=== PATIENT | female | born 1990 | race Caucasian/White ===

== ENCOUNTER 2022-04-22 15:07 | Emergency (ER) | payer OTHER, SELFPAY ==
--- NOTE | ~2022-04-22 | XR_ITS ---
EXAM: XR foot RT min 3V DATE: 04/22/2022 16:44 HISTORY: recent surgery possible re-injury, Rt foot prox 5th MT . COMPARISON: None available. FINDINGS: Proximal fifth metatarsal fixation screw and plate hardware without hardware fracture or pe rihardware lucency. Normal mineralization. No fracture or dislocation. No lytic or blastic lesion. Dena int spaces are maintained. No erosion or periosteal change. Soft tissues within normal limits. IMPRESSION: No acute osseous finding in the right foot. No radiographic evidence of hardware-related complication. Reviewed, dictated and finalized at location K. IMPRESSION: No acute osseous finding in the right foot. No radiographic evidenc e of hardware-related complication.
[2022-04-22 15:13] VITALS: BP 129/84; PULSE 89; RESP 16; TEMP 36.9; O2SAT 100
[2022-04-22 16:17] LABS: Basophils Absolute Auto 0.1 K/mm3 (0.0-0.1); Basophils Percent Auto 0.3 % (0.2-1.2); Eosinophils Absolute Auto 0.1 K/mm3 (0-0.3); Eosinophils Percent Auto 0.4 % (0-4.4); Hematocrit 41.6 % (37.0-47.0); Hemoglobin 13.6 g/dL (12.0-15.0); Immature Granulocyte Absolute 0.04 K/mm3 (0.00-0.031); Immature Granulocyte Percent A 0.3 % (0-0.5); Lymphocytes Absolute Auto 3.31 K/mm3 (0.9-3.2); Lymphocytes Percent Auto 21.6 % (18.3-44.2); Mean Corpuscular HGB Conc 32.7 g/dl (32-36); Mean Corpuscular Hemoglobin 28.7 pg (26-34); Mean Corpuscular Volume 87.8 fl (80-100); Mean Platelet Volume 10.1 fl (7.4-10.4); Monocytes Absolute Auto 0.8 K/mm3 (0.1-0.6); Monocytes Percent Auto 5.1 % (2.6-8.5); Neutrophils Absolute Auto 11.1 K/mm3 (1.3-6.7); Neutrophils Percent Auto 72.3 % (45.5-73.1); Platelet Count Result 399 k/mm3 (150-375); Red Blood Count 4.74 M/mm3 (4.2-5.4); Red Cell Distribution Width 13.6 % (11.5-14.5); White Blood Count 15.3 K/mm3 (4.5-10.0)
[2022-04-22 16:34] LABS: Alanine Aminotransferase 41 U/L (6-35); Albumin Level 4.7 g/dL (3.5-5.1); Alkaline Phosphatase 80 U/L (38-126); Anion Gap 12 mmol/L (8-16); Aspartate Amino Transferase 28 U/L (14-36); Bilirubin,Total 0.5 mg/dL (0.2-1.3); Blood Urea Nitrogen 12 mg/dL (7-17); Carbon Dioxide 25 mmol/L (22-30); Chloride 103 mmol/L (98-107); Estimated CRCL calculation 70 ml/min; Estimated Glomerular Filt Rate > 60; Glucose 111 mg/dL (65-110); Lipase 129 U/L (23-300); Sodium 140 mmol/L (137-145)
[2022-04-22] MEDS: MORPHINE SULFATE (*CRX) 4 MG/ML INJ IV PUSH (16:49)
[2022-04-22] MEDS: SODIUM CHLORIDE 0.9% IV 1,000 ML 999 ML IV CONT (16:49)
[2022-04-22] MEDS: METOCLOPRAMIDE HCL INJ 10 MG/2 ML VIAL IV PUSH (16:53)
[2022-04-22] MEDS: diphenhydrAMINE HCl INJ 50 MG/ML VIAL 25 MG IV PUSH (16:59)
[2022-04-22 17:04] VITALS: BP 125/80; PULSE 73; RESP 18; O2SAT 100
--- NOTE | 2022-04-22 17:14 | ED.NAVMDI ---
HPI - Nausea/Vomiting/Diarrhea General Chief complaint: Nausea/Vomiting/Diarrhea Stated complaint: vomiting, foot surgery yesterday Time Seen by Provider: 04/22/22 16:03 History of Present Illness HPI Narrative: 31-year-old female with recent foot surgery presents after throwing up all morning, she does have a history of ulcerative colitis and fatty liver disease but denies any abdominal pain. She is unable to keep down her pain medications. Denies any diarrhea. Related Data Allergies Allergy/AdvReac Type Severity Reaction Status Date / Time gold Au 198 Allergy had Verified 11/10/21 11:32 allergy test Review of Systems Review of Systems: CONST: No fever. HEENT: No sore throat C/V: No chest pain RESP: No cough GI: Reports nausea, vomiting : No dysuria. M/S: No joint pain. SKIN: No rash. NEURO: [No headache or focal numbness or weakness] PSYCH: [No depression] PMFSH Surgical History Surgical History H/O nasal septoplasty Family History Family History Mother Cervical cancer Social History Social History Smoking packs per day: 0 Smoking cigarettes per day: 0.0 Smoking status: Never smoker Alcohol intake: never Other substance usage details: cbd Additional occupation/education comments: management Gender identity (if verbalized by the patient): Female Sexual Orientation (if Verbalized by the Patient): Straight or Heterosexual Spiritual care concerns: No Exam Narrative: EXAMINATION OF ORGAN SYSTEMS/BODY AREAS: Constitutional: Vital signs per nursing GENERAL: Appears to be in pain HEAD: Normal with no signs of head trauma. EYES: EOMI, conjunctiva normal ENT: Hearing grossly intact LUNGS: Nonlabored breathing. HEART: [Regular rate and rhythm] ABD: [Soft], [nontender to palpation] EXT: Right ankle in cast SKIN: [No rashes or lesions.] NEURO: [Alert and oriented x 3. No gross focal sensory or strength deficits.] PSYCH: Normal affect Course Vital Signs Vital signs: Vital Signs Temperature 98.4 F 04/22/22 15:13 Pulse Rate 89 04/22/22 15:13 Respiratory Rate 16 04/22/22 15:13 Blood Pressure 129/84 04/22/22 15:13 Pulse Oximetry 100 04/22/22 15:13 Temperature 98.4 F 04/22/22 15:13 Pulse Rate 71 04/22/22 17:38 Respiratory Rate 18 04/22/22 17:04 Blood Pressure 123/76 04/22/22 17:38 Pulse Oximetry 100 04/22/22 17:04 MDM - Nausea/Vomiting/Diarrhea MDM Narrative Medical decision making narrative: electronic medical record was reviewed. Patient presented to the ED with complaint of vomiting. Vitals [were within acceptable limits]. Physical exam revealed uncomfortable appearing patient and soft, nontender abdomen. Based on the patient's history and physical exam, my differential includes but is not limited to gastritis, gastroenteritis, doubt cholecystitis, pancreatitis, appendicitis, or ulcerative colitis flareup without any abdominal pain or tenderness. [IV access was established by nursing staff. Patient was given Reglan, morphine, IV fluids]. CBC, BMP, lipase, LFTs, bilirubin and alk phos were obtained. Labs were pertinent for leukocytosis, which could possibly be from the surgery or vomiting. Shared decision making not to obtain CT at this time without any abdominal pain. On reevaluation, the patient states that they are feeling much better. There were no witnessed episodes of vomiting in the emergency department. They are not complaining of any new abdominal pain. Repeat examination did not show any significant guarding or rebound. No new tenderness. At this time I do not feel there is any further emergent treatment to be provided. The patient was given strict return precautions, if they are to develop any abdominal pain, vomiting, or blood in the vomit they are to return to the emergency departmen
[2022-04-22 17:38] VITALS: BP 115/69; BP 123/76; BP 123/82; PULSE 64; PULSE 71
[2022-04-22 17:44] LABS: Appearance Urine Clear (Clear); Bilirubin Urine 1+ (Negative); Blood Urine Negative (Negative); Color Urine Yellow (Yellow); Glucose Urine UA Negative (Negative); Ketones Urine 2+ mg/dL (Negative); Leukocyte Esterase Ur Trace LEU/UL (Negative); Nitrate Urine Negative (Negative); Protein Urine Trace mg/dL (Negative); Specific Grav Ur >= 1.030 (1.001-1.035); Urobilinogen Urine 0.2 mg/dL (<2.0)
[2022-04-22 18:18] VITALS: BP 103/70; PULSE 61; RESP 18; O2SAT 99
[2022-04-22 18:24] LABS: Add Urine Microscopic? YES; Mucus Urine Rare /lpf; Squamous Epithelial Cell Urine Many /hpf (Few)
== END 2022-04-22 18:20 | disposition home or self-care (01) ==
PROVIDERS: Emergency Medicine; Emergency Provider Emergency Medicine
DX: R11.10 Vomiting, unspecified (principal); Z98.890 Other specified postprocedural states; K51.90 Ulcerative colitis, unspecified, without complications; K76.0 Fatty (change of) liver, not elsewhere classified
CPT/HCPCS: 36415; 73630; 80053; 81001; 81025; 83690; 85025; 96361; 96374; 96375; 99284; J1200; J2270; J2765; J7030

== ENCOUNTER 2022-04-26 22:39 | Emergency (ER) | payer OTHER, SELFPAY ==
[2022-04-26] VITALS (10 sets, daily range): BP systolic 137–153; BP diastolic 95–97; PULSE 68–75; RESP 12–21; O2SAT 98–100
--- NOTE | ~2022-04-26 | CT_ITS ---
EXAMINATION: CT brain wo con DATE: 04/26/2022 23:44 INDICATION: Headache. TECHNIQUE: Computed tomography (CT) of the head was performed without intravenous contrast. The mA wa s adjusted according to patient size. Iterative reconstruction technique was employed. The dose-lengt h product was 605.33 mGy-cm. COMPARISON: Head CT 01/10/2019 FINDINGS: There is no intracranial hemorrhage, acute infarction, or abnormal intracranial mass lesion . The ventricles are normal in size. There is mild mucosal thickening in the paranasal sinuses. The m astoid air cells are normal. The orbits are normal. IMPRESSION: 1. Normal brain. Reviewed, dictated and finalized at location A. IMPRESSION: 1. Normal brain.
--- NOTE | 2022-04-26 23:06 | ED.GENADULT ---
HPI - General Adult General Chief complaint: Unspecified Stated complaint: 1/2 head pain/ 1/2 head tingling Time Seen by Provider: 04/26/22 22:44 Source: patient Mode of arrival: ambulatory History of Present Illness HPI narrative: 31-year-old female presents today with complaints of pain to the left side of the head and tingling to the right side of the head that started around 8:00 this evening. Patient does endorse nausea but denies sensitivity to light. Patient states she has a history of tension headaches but this feels nothing like that. Patient did have surgery on her right foot on Sunday. She did see her orthopedic surgeon today who prescribed gabapentin, Eliquis, and Zofran. Patient states she took her Eliquis around 6:00 the headache started around 8 and then she took some gabapentin. Related Data Allergies Allergy/AdvReac Type Severity Reaction Status Date / Time gold Au 198 Allergy had Verified 04/26/22 23:01 allergy test Review of Systems Review of Systems: CONSTITUTIONAL: Denies fever, chills, or sweats. EYES: States she has had some floaters. Denies redness, or discharge. ENT: Denies rhinorrhea, congestion, sore throat, or otalgia. CARDIOVASCULAR: Denies chest pain, palpitations, or edema. RESPIRATORY: Denies cough or dyspnea. GASTROINTESTINAL: Denies abdominal pain, nausea, vomiting, or diarrhea. GENITOURINARY: Denies dysuria or hematuria. SKIN: Denies rash or itching. MUSCULOSKELETAL: Denies back pain, joint pain, or myalgia. NEUROLOGIC: Left-sided headache and right-sided tingling to head. PSYCHIATRIC: Denies anxiety or depression. [facility] Surgical History Surgical History H/O nasal septoplasty Family History Family History Mother Cervical cancer Social History Social History Smoking packs per day: 0 Smoking cigarettes per day: 0.0 Smoking status: Never smoker Alcohol intake: never Other substance usage details: cbd Additional occupation/education comments: management Gender identity (if verbalized by the patient): Female Sexual Orientation (if Verbalized by the Patient): Straight or Heterosexual Spiritual care concerns: No Exam Narrative: GENERAL: Well-appearing, well-nourished, and in no acute distress. HEAD: Normocephalic, atraumatic. EYES: PERRLA and EOMI. NECK: Supple. No adenopathy or masses. No carotid bruits or JVD CHEST: Clear to auscultation. No respiratory distress. No wheezes rales or rhonchi HEART: Regular rate and rhythm. No murmur heard. Normal peripheral pulses. ABDOMEN: Soft, nontender, nondistended, normal active bowel sounds. EXTREMITIES: Normal range of motion. No edema. SKIN: Warm, dry, no rash. NEURO: No focal deficits. Alert and oriented x3. PSYCH: Normal mood and affect. Course Course Emergency Course: Discussed CT results with patient. Patient is aware there are no acute findings. Patient has been given IV fluids, Benadryl, Reglan, and Toradol. Patient currently without any pain. Patient wanting to be discharged home. Will discharge patient home with plan follow-up with primary if needed. Vital Signs Vital signs: Vital Signs Pulse Rate 70 04/26/22 22:40 Respiratory Rate 15 04/26/22 22:40 Blood Pressure 153/95 H 04/26/22 22:40 Pulse Oximetry 99 04/26/22 22:40 Pulse Rate 78 04/27/22 01:06 Respiratory Rate 18 04/27/22 01:06 Blood Pressure 137/97 H 04/27/22 00:46 Pulse Oximetry 99 04/27/22 01:06 Oxygen Delivery Room Air 04/26/22 22:52 Medical Decision Making MDM Narrative Medical decision making narrative: 31-year-old female HPI as noted. Patient newly started on Eliquis today. Patient states she took her first dose of Eliquis around 6:00. Headache started around 8. Patient with some nausea and states she saw floaters. Pain
[2022-04-26] MEDS: SODIUM CHLORIDE 0.9% IV 1,000 ML 999 ML IV CONT (23:20)
[2022-04-27] VITALS (10 sets, daily range): BP systolic 137–151; BP diastolic 92–97; PULSE 66–78; RESP 12–21; O2SAT 97–100
[2022-04-27 00:28] LABS: Appearance Urine Clear (Clear); Bilirubin Urine Negative (Negative); Blood Urine Trace-lysed (Negative); Color Urine Yellow (Yellow); Glucose Urine UA Negative (Negative); Ketones Urine 1+ mg/dL (Negative); Leukocyte Esterase Ur 3+ LEU/UL (Negative); Nitrate Urine Negative (Negative); Protein Urine 1+ mg/dL (Negative); Specific Grav Ur 1.025 (1.001-1.035)
[2022-04-27 00:34] LABS: Add Urine Microscopic? YES; Mucus Urine Few /lpf; Squamous Epithelial Cell Urine Many /hpf (Few); WBC Urine >75 /hpf
[2022-04-27] MEDS: METOCLOPRAMIDE HCL INJ 10 MG/2 ML VIAL IV PUSH (00:49)
[2022-04-27] MEDS: diphenhydrAMINE HCl INJ 50 MG/ML VIAL 25 MG IV PUSH (00:49)
[2022-04-27] MEDS: KETOROLAC 30 MG/ML VIAL (*BKC) IV PUSH (00:49)
== END 2022-04-27 01:42 | disposition home or self-care (01) ==
PROVIDERS: Emergency Provider Nurse Practitioner Family
DX: R51.9 Headache, unspecified (principal); Z98.890 Other specified postprocedural states; Z79.01 Long term (current) use of anticoagulants
CPT/HCPCS: 70450; 81001; 81025; 87086; 96361; 96374; 96375; 99284; J1200; J1885; J2765; J7030

== ENCOUNTER 2023-05-31 00:09 | Day surgery (SDC) | payer OTHER, SELFPAY ==
[2023-05-23 13:58] VITALS: BMI 24.8
--- NOTE | 2023-05-23 14:25 | PC.NURSE ---
Report to the Outpatient Waiting Room, entrance under the green pavilion located off [facility], at time _0600 on date [phone] . Planned Procedure Time: _0730 . Time changes happen often and if your time is changed the preop area will call you the afternoon before. - You and your visitor will be asked to self-screen and do not enter if you have any COVID symptoms. - A mask is optional within the hospital at this time. Patients may have clear liquids (water, carbonated beverages, clear teas, apple juice) until 3 hours prior to surgery with a maximum of 20 ounces. - No food from midnight until time of surgery Take the following medications with a SIP of water the morning of surgery: All scheduled daily except prilosec the morning of surgery. DO NOT STOP ANY OF YOUR OTHER PRESCRIPTION MEDICATIONS PRIOR TO SURGERY ?EXCEPT THE FOLLOWING Medications to discontinue per physician n/a Date to take last dose n/a Please no make-up, nail divehi, hairspray, perfume, deodorant, or body powder the day of surgery. No jewelry (including any body piercings) or valuables the day of surgery, leave them at home. Please take a shower or bath the night before, or the morning of, surgery with an antibacterial soap. Wear comfortable, loose fitting clothing. Children are encouraged to wear pajamas. - Jewelry must be removed prior to entering the operating room. Rings and piercings that are not removed may be cut off. - The hospital will not accept responsibility for valuables. - Please leave all valuables, including medications, at home the day of surgery. If you are going home after surgery, a licensed local company refrigerated truck driver must drive you home. - NO public transportation without another adult if you receive anesthesia. - We recommend that an adult stay with you for 24 hours following discharge. - We also recommend that you do not drive, make important decision, drink alcoholic beverages, or take any drugs that were not prescribed by your health care provider for at least 24 hours after your discharge time. Follow any additional instructions given to you from your surgeon. If you or anyone in your household have experienced Covid symptoms in the past week, please notify your surgeon or the nurse liaison at the phone number below for possible testing. Telephone instructions given to ___Lucy (patient) and asked if any additional questions and then verbalized understanding. Patient advised to call surgeon office or pre surgery nurse liaison [phone] if any additional questions.
[2023-05-31] VITALS (12 sets, daily range): BP systolic 107–130; BP diastolic 72–88; PULSE 61–88; RESP 10–18; TEMP 36.2–36.6; O2SAT 94–100
--- NOTE | ~2023-05-31 | XR_ITS ---
XR chest 1V portable 05/31/2023 13:57 Indication: Right mid chest pain postsurgical Procedure: AP portable chest Comparison: No prior studies for comparison. Findings: There are bilateral breast implants. There is extensive gas in the breasts bilaterally sugg esting recent breast surgery. Clinically correlate. Heart size normal. No focal air space disease, pu lmonary edema, pleural effusion or suspected pneumothorax. Impression: 1: Extensive bilateral gas within the breasts, most likely due to recent surgery. Clinically correlat e. Reviewed, dictated and finalized at location L. Impression: 1: Extensive bilateral gas within the breasts, most likely due to recent surger y. Clinically correlate.
[2023-05-31] MEDS: LACTATED RINGERS 1,000 ML 30 ML IV CONT ×2 (06:15→10:30)
[2023-05-31 06:27] LABS: Urine Cotinine NEGATIVE
--- NOTE | 2023-05-31 07:17 | WPDHPUPDATE1 ---
History and Physical Update Update Date/Time: 05/31/23 07:17 History and Physical has been reviewed, including an updated exam of the patient. There are NO changes in the patient's condition. Risks, benefits, and alternatives have been discussed and questions answered. Patient agrees to proceed with procedure.
--- NOTE | 2023-05-31 07:17 | W.PM.PROC2 ---
Procedure Note - Detailed Date of Procedure 05/31/23 Pre-op Diagnosis breast ptosis, micromastia Post-op Diagnosis Same Procedure Performed Bilateral augmentation mastopexy with suction lipectomy and Galaflex Surgeon Nakul Ivan MD Anesthesia General Findings Inverted T Mastopexy Superior pedicle Lipoaspirate: 250 cc Bilateral Izaiah Infreedom SoftTouch 520 cc Right - REF# [id number] SN [id number] Left - REF# [id number] SN [id number] Description of Procedure She is here today for the above. Previously and again today the risks, benefits, alternatives were discussed in extensive detail. I wanted her to be very realistic about the risks involved as well as expectations. We confirmed final implant style and size. We discussed aftercare and what to monitor for. Made sure answered all of her questions to her satisfaction today and consent was obtained. Marked in the preoperative holding area with their verification. The patient was taken to the operating room placed supine on the operating table. Anesthesia was provided by anesthesiology. A surgical time-out was taken. We cleansed the skin and 1% lidocaine and 0.25% Marcaine with epinephrine was used anesthetize as a field block. She was prepped and draped in a standard sterile fashion. Tegaderm nipple Hutchinson were placed. A 15 blade used to make an incision just superior to the inframammary fold leaving a cusp of de-epithelized tissue at the t junction. Dissection was continued until the chest wall as identified. I incised the pectoralis major along its inferior border and completely released the inferior border leaving the medial border intact. I created a subpectoral pocket in the appropriate dimensions based on our preoperative planning for the implant. I then copiously irrigated with saline solution and verified a strict hemostasis. Next the use a triple antibiotic and Betadine containing solution to irrigate the pocket. I washed my gloves with the triple antibiotic and Betadine solution. We washed the implant immediately upon opening it with this solution and only opened it when we needed it. I used implant funnel and no-touch technique. The implant was introduced into the pocket using the funnel. Having verified positioning of the implant this was closed using 2-0 PDS. I tailor tacked the breast into position. Placed her in a sitting position. Verified the nipple-areolar location based on preoperative planning as well as intraoperative observations and measurements in full agreement. Suction lipectomy was completed of the lateral breast based on S.A.F.E. technique (with care taken to protect the implant and no evidence of implant or other structure injury). This was based on pre-operative planning, intraoperative observation, and rolling pinch which was in full agreement. She was placed supine. I de-epithelialized the pedicle. I then removed the inferior central portion of the breast need making sure the implant was well protected. I elevated medial and lateral tissue flaps as well for planned closure. Galaflex had been soaking in betadine solution on the back table. Trimmed and sutured into place with 2-0 Vicryl. I closed along the IMF with 2-0 Stratafix. Along the vertical with 2-0 PDS. I closed around the areola with 3-0 strata fix. 3-0 Monocryl along the vertical. 3-0 Stratafix along the IMF. I finally closed everything with running subcuticular 4-0 Monocryl and tissue glue. Fluffs and surgical bra were placed. Estimated Blood Loss 25 Drains No Packing No Pathology None sent Complications No immediate complications Condition Stable Disposition PACU
--- NOTE | 2023-05-31 07:27 | WPDANESEPPF ---
Anes - Initial Pre Proc Eval Procedure: Operation Date: 05/31/23 07:30 Proposed Procedures p Bilateral Breast Augmentation, - Nakul Ivan MD s Bilateral Breast Mastopexy with Galaflex - Nakul Ivan MD s Liposuction of Bilateral Breast - Nakul Ivan MD Date/Time: 05/31/23 07:27 Surgeon: Nakul Ivan MD Pre Op Diagnosis: breast ptosis, micromastia Patient Data Age: 32 Gender: F Height: 1.6 m Weight: 63.6 kg Last Vital Signs Temp 97.1 F L 05/31/23 07:04 Pulse 63 05/31/23 07:04 Resp 16 05/31/23 07:04 BP 114/83 05/31/23 07:04 Pulse Ox 98 05/31/23 07:04 O2 Del Method Room Air 05/31/23 07:04 Allergies Allergy/AdvReac Type Severity Reaction Status Date / Time gold Au 198 Allergy had Verified 05/31/23 07:03 allergy test Home Medications Medication Instructions Recorded Confirmed Type adalimumab 40 mg/0.4 mL See Rx Instructions subcut 09/28/21 05/31/23 Rx subcutaneous pen kit .COMPLEX #2 ea albuterol sulfate 90 mcg/actuation 1 - 2 inh inhalation Q4H PRN 09/28/21 05/31/23 Rx aerosol inhaler (ProAir HFA) shortness of breath or wheezing #8.5 grams benzonatate 100 mg capsule 100 mg PO TID PRN cough #30 caps 09/28/21 05/31/23 Rx bisacodyl 5 mg tablet,delayed 5 mg PO .prn every 3 days #14 tabs 09/28/21 05/31/23 Rx release levonorgestrel-ethinyl estradiol 1 tablet PO DAILY #84 tabs 09/28/21 05/31/23 Rx 0.1 mg-20 mcg tablet (Aviane) omeprazole 20 mg capsule,delayed 20 mg PO DAILY #90 caps 09/28/21 05/31/23 Rx release ondansetron 4 mg disintegrating 4 mg PO Q8H PRN nausea and 04/22/22 05/31/23 Rx tablet vomiting #10 tabs fluoxetine 10 mg capsule 20 mg PO DAILY 05/23/23 05/31/23 History Laboratory Tests 05/31/23 06:14 Cotinine Negative Patient hx anesthesia problems: none Family hx anesthesia problems: none Results Review: All pre-operative results and documents have been reviewed as part of the pre-operative evaluation. [facility] Surgical History Surgical History H/O nasal septoplasty Family History Family History Mother Cervical cancer Social History Social History Smoking packs per day: 0 Smoking cigarettes per day: 0.0 Smoking status: Never smoker Second hand tobacco smoke exposure: No Alcohol intake: never Substance use: current Substance use type: marijuana Other substance usage details: rarely uses and states she knows not to use during recovery Living arrangements: with friend(s) Occupation/Education: occupation Additional occupation/education comments: management Gender identity (if verbalized by the patient): Female Sexual Orientation (if Verbalized by the Patient): Straight or Heterosexual Spiritual care concerns: No Anes - Eval Final PreProcedure Day of Procedure 05/31/23 07:27 Patient weight: normal Heart: regular rate and rhythm Lungs: clear to auscultation Airway: Mallampati scale class II Neurological: alert and oriented Last oral intake: >/= 8 hours ASA classification: II Emergent: no Anesthetic plan: proceed Anesthesia type and monitoring: general LMA and standard monitoring Results Review: All pre-operative results and documents have been reviewed as part of the pre-operative evaluation. Informed Consent: The patient's anesthetic plan and its attendant risks and benefits were discussed with the patient/family/POA. Questions were solicited and answers provided to the satisfaction of the patient/family/POA.
[2023-05-31] MEDS: NACL 0.9% IRRIG POUR BOTTLE 900 ML, GENTAMICIN SULFATE INJ 160 MG, ceFAZolin 2 GM, POVI... IRRIGATION (07:30)
[2023-05-31] MEDS: LACTATED RINGERS IRRIG 1,000 ML, LIDOCAINE HCL 1% LOCAL INJ 50 ML, EPINEPHrine HCL INJ ... INFILTRATE (07:30)
[2023-05-31] MEDS: ceFAZolin 2 GM/D5W 50 ML 2 GM/50 ML BAG IVPB (07:30)
[2023-05-31] MEDS: TRANEXAMIC ACID 1,000MG/ISO100 1,000 MG/100 ML BAG 200 MG IVPB (07:40)
[2023-05-31] MEDS: fentaNYL CITRATE INJ (*CRX) 100 MCG/2 ML VIAL 25 MCG IV PUSH ×4 (11:11→11:25)
[2023-05-31] MEDS: oxyCODONE HCL (*CRX) 5 MG TAB IR PO (12:02)
[2023-05-31] MEDS: ONDANSETRON INJ 4 MG/2 ML VIAL IV PUSH (12:58)
== END 2023-05-31 14:21 | disposition home or self-care (01) ==
PROVIDERS: Visit Provider Surgery Plastic and Reconstructive Surgery
PROC: (CPT 19325; principal; 2023-05-31 07:30)
PROC: (CPT 19316; 2023-05-31 07:30)
PROC: (CPT 15877; 2023-05-31 07:30)
DX: Z41.1 Encounter for cosmetic surgery (principal); N64.81 Ptosis of breast; N64.82 Hypoplasia of breast; Z79.620 Long term (current) use of immunosuppressive biologic; Z79.51 Long term (current) use of inhaled steroids; F12.90 Cannabis use, unspecified, uncomplicated
CPT/HCPCS: 19325; 19316; 15777 ×2; 15877; 71045; 80307; A9270; J0171; J0690; J1100; J1170; J1580; J2250; J2405; J2704; J3010; J7120

== ENCOUNTER 2024-03-27 11:10 | Outpatient (CLI) | payer OTHER, SELFPAY ==
--- NOTE | ~2024-03-27 | XR_ITS ---
EXAMINATION: XR hysterosalpingogram DATE: 03/27/2024 12:43 INDICATION: Fertility testing TECHNIQUE: Multiple fluoroscopic images were obtained during contrast infusion into the endometrial c anal of the uterus by the primary physician. Fluoroscopy exposure time was 0.2 minutes. FINDINGS: The uterine cavity demonstrates normal morphology. The fallopian tubes are normal in caliber and pat ent bilaterally. There is normal spillage of contrast into the peritoneum on both sides. IMPRESSION: 1. Normal hysterosalpingogram. Reviewed, dictated and finalized at location A.
[2024-03-27 12:27] LABS: Beta HCG Quantitative < 2.39 mIU/ML
== END 2024-03-27 11:11 | disposition home or self-care (01) ==
LOC: ANHIMG 11:12
PROVIDERS: PCP Nurse Practitioner Family; Visit Provider Obstetrics & Gynecology Gynecology
DX: Z31.49 Encounter for other procreative investigation and testing (principal)
CPT/HCPCS: 36415; 58340; 74740; 84702; Q9966

== ENCOUNTER 2024-04-26 09:45 | Outpatient (CLI) | payer OTHER, SELFPAY ==
--- NOTE | ~2024-04-26 | US_ITS ---
EXAMINATION: US pelvic complete DATE: 04/26/2024 09:59 INDICATION: PELVIC PAIN TECHNIQUE: Multiple transabdominal sonographic images of the pelvis were obtained. COMPARISON: HSG 03/27/2024; CT abdomen pelvis 11/11/2016 FINDINGS: Uterus: 8.0 x 3.2 x 4.3 cm. Endometrial complex measures 4 mm. Right Ovary: 6.8 x 3.7 x 4.6 cm. Vascular flow is present. 2.9 cm simple cyst. 3.5 cm minimally compl icated cyst, with nondependent nonvascular echogenicity, likely proteinaceous or hemorrhagic debris. Left Ovary: 3.4 x 1.7 x 3.0 cm. Vascular flow is present. 3.0 cm simple cyst There is no free fluid in the pelvis. IMPRESSION: 3.5 cm minimally comminuted right ovarian cyst, likely hemorrhagic or proteinaceous cyst, consider fo llow-up in 8 weeks to demonstrate resolution. Otherwise normal pelvic ultrasound findings. Reviewed, dictated and finalized at location K. IMPRESSION: 3.5 cm minimally comminuted right ovarian cyst, likely hemorrhagic or proteinac eous cyst, consider follow-up in 8 weeks to demonstrate resolution. Otherwise normal pelvic ultrasound findings.
== END 2024-04-26 09:46 ==
LOC: MICIMG 09:46
PROVIDERS: PCP Nurse Practitioner Women's Health; Visit Provider Nurse Practitioner Women's Health
DX: R10.2 Pelvic and perineal pain (principal); N83.201 Unspecified ovarian cyst, right side
CPT/HCPCS: 76856

== ENCOUNTER 2025-01-30 11:24 | Outpatient (CLI) | payer OTHER, SELFPAY ==
--- NOTE | ~2025-01-30 | US_ITS ---
Pelvic ultrasound. Clinical History: Ovarian cyst COMPARISON: 09/26/2024 Technique: Realtime transabdominal and transvaginal scanning of the pelvis was performed. Color flow Doppler and Doppler spectral analysis were performed. Findings: The uterus is anteverted. The endometrial stripe has a thickness of 2 mm. No focal mass is identified. The right ovary measures 2.8 x 2.6 x 3.0 cm. No significant right ovarian or adnexal mass is seen. The left ovary measures 3.1 x 2.2 x 3.0 cm. No significant left ovarian or adnexal mass is seen. There is no evidence of free fluid in the cul de sac. Impression: No significant abnormality. Reviewed, dictated and finalized at [facility]. Impression: No significant abnormality.
== END 2025-01-30 11:25 | disposition home or self-care (01) ==
LOC: MICIMG 11:25
PROVIDERS: PCP Obstetrics & Gynecology Gynecology; Visit Provider Obstetrics & Gynecology Gynecology
DX: N83.201 Unspecified ovarian cyst, right side (principal)
CPT/HCPCS: 76856